=== PATIENT | female | born 1985 | race African-American/Black ===

== ENCOUNTER 2017-11-07 16:45 | Emergency (ER) | payer MEDICAID ==
[~2017-11-07] VITALS: Ht 160 cm; Wt 71.0 kg
[2017-11-07] MEDS ORDERED: DICYCLOMINE 10 MG/5 ML ORAL SYR PO STA (22:24)
[2017-11-07] MEDS ORDERED: VISCOUS LIDOCAINE 2% 15 ML UDC PO STA (22:24)
[2017-11-07] MEDS ORDERED: ONDANSETRON 4MG ODT PO STA (22:24)
[2017-11-07] MEDS ORDERED: MAGNESIUM/ALUMINUM HYDROXIDE/SIMETHICONE 30ML UDC PO STA (22:24)
[2017-11-08 00:22] LABS: CLARITY URINE CLEAR (CLEAR); COLOR URINE YELLOW (YELLOW); KETONES URINE NEGATIVE (NEGATIVE); LEUKOCYTE ESTERASE URINE NEGATIVE (NEGATIVE); NITRITE URINE NEGATIVE (NEGATIVE); OCCULT BLOOD URINE NEGATIVE (NEGATIVE); PROTEIN URINE NEGATIVE (NEGATIVE); SPECIFIC GRAVITY URINE 1.026 (1.005-1.030)
[2017-11-08] MEDS ORDERED: KETOROLAC 30MG/ML VIAL IM ONE (00:45)
[2017-11-08 00:56] LABS: BASOPHILS % 0.3 % (0.0-2.0); EOSINOPHILS % 1.2 % (0.0-5.0); HEMATOCRIT. 35.8 % (36.0-48.0); HEMOGLOBIN. 11.9 g/dL (12.0-16.0); LYMPHOCYTES % 33.5 % (20.0-50.0); MEAN CORPUSCULAR HEMOGLOBIN 28.9 pg (28.0-32.0); MEAN CORPUSCULAR VOLUME 86.5 fL (81.0-99.0); MONOCYTES % 5.4 % (2.0-8.0); NEUTROPHILS % 59.6 % (40.0-76.0); PLATELET 249 x1000/uL (130-400); RED BLOOD CELL COUNT 4.14 mill/uL (4.2-5.4)
[2017-11-08 00:58] VITALS: BP 112/64
[2017-11-08 01:03] LABS: HCG SCREEN NEGATIVE
[2017-11-08 01:06] LABS: CHLORIDE 104 mEq/L (98-107)
== END 2017-11-08 02:20 | disposition home or self-care (01) ==
LOC: ER 17:02
DX: R14.0 Abdominal distension (gaseous) (principal)
CPT/HCPCS: 36415; 71045; 80053; 81003; 83690; 84484; 84703; 85025; 93005; 96372; 99285; J1885; Q0162

== ENCOUNTER 2018-11-28 11:31 | Emergency (ER) | payer MEDICAID ==
[~2018-11-28] VITALS: Ht 160 cm; Wt 71.0 kg
[2018-11-28 11:49] VITALS: BP 122/74
[2018-11-28] MEDS ORDERED: ACETAMINOPHEN 325MG TABLET PO ONE (13:45)
== END 2018-11-28 14:57 | disposition home or self-care (01) ==
LOC: ER 13:07
DX: S80.02XA Contusion of left knee, initial encounter (principal); M54.2 Cervicalgia; M54.6 Pain in thoracic spine; Z98.890 Other specified postprocedural states; Z88.6 Allergy status to analgesic agent; V43.52XA Car driver injured in collision with other type car in traffic accident, initial encounter; Y93.89 Activity, other specified; Y92.488 Other paved roadways as the place of occurrence of the external cause
CPT/HCPCS: 99283

== ENCOUNTER 2021-11-23 10:15 | Emergency (ER) | payer MEDICAID ==
[~2021-11-23] VITALS: Ht 160 cm; Wt 70.0 kg
[2021-11-23] MEDS ORDERED: FAMOTIDINE 20MG TABLET PO ONE (11:15)
[2021-11-23] MEDS ORDERED: IBUPROFEN 600MG TABLET PO ONE (11:15)
[2021-11-23 11:45] LABS: BASOPHILS % 0.3 % (0.0-2.0); EOSINOPHILS % 1.7 % (0.0-5.0); HEMATOCRIT. 36.6 % (36.0-48.0); LYMPHOCYTES % 33.1 % (20.0-50.0); MEAN CORPUSCULAR HEMOGLOBIN 28.4 pg (28.0-32.0); MEAN CORPUSCULAR VOLUME 86.4 fL (81.0-99.0); MEAN PLATELET VOLUME 9.1 fl (7.4-10.4); NEUTROPHILS % 51.9 % (40.0-76.0); PLATELET 223 x1000/uL (130-400); RED BLOOD CELL COUNT 4.23 mill/uL (4.2-5.4); RED CELL DISTRIBUTION WIDTH 13.5 % (11.6-14.6)
[2021-11-23 11:52] LABS: CHLORIDE 106 mEq/L (98-107)
[2021-11-23] MEDS ORDERED: IBUP-2029 MT (12:24)
[2021-11-23 12:39] VITALS: BP 122/65
== END 2021-11-23 13:00 | disposition home or self-care (01) ==
LOC: ER 10:15
DX: R07.89 Other chest pain (principal); Z88.6 Allergy status to analgesic agent; Z98.890 Other specified postprocedural states
CPT/HCPCS: 36415; 71045; 80048; 81025; 84484; 85025; 85379; 93005; 99285

== ENCOUNTER 2022-07-29 05:53 | Emergency (ER) | payer MEDICAID ==
[~2022-07-29] VITALS: Ht 160 cm; Wt 69.7 kg
[~2022-07-29 05:53] MED LIST: IBUP-2029 MT
[2022-07-29] MEDS ORDERED: ACETAMINOPHEN WITH CODEINE 300/30MG TABLET PO ONE (06:30)
[2022-07-29 06:36] VITALS: BP 110/70
[2022-07-29] MEDS ORDERED: T3 PO (07:14)
[2022-07-29] MEDS ORDERED: IBUP-2028 PO (07:14)
== END 2022-07-29 08:10 | disposition home or self-care (01) ==
LOC: ER 05:53
DX: S52.592A Other fractures of lower end of left radius, initial encounter for closed fracture (principal); S52.692A Other fracture of lower end of left ulna, initial encounter for closed fracture; Z98.890 Other specified postprocedural states; W01.0XXA Fall on same level from slipping, tripping and stumbling without subsequent striking against object, initial encounter; Y93.51 Activity, roller skating (inline) and skateboarding; Y92.89 Other specified places as the place of occurrence of the external cause; Y99.8 Other external cause status
CPT/HCPCS: 29105; 73110; 99283

== ENCOUNTER 2023-10-27 22:56 | Emergency (ER) | payer MEDICAID ==
[~2023-10-27] VITALS: Ht 160 cm; Wt 71.0 kg
[~2023-10-27 22:56] MED LIST changes: +IBUP-2028 PO; +T3 PO
[2023-10-27 23:37] VITALS: BP 122/80; PULSE 82; RESP 18; TEMP 98.5; O2SAT 100
[2023-10-28 00:12] LABS: BASOPHILS % 0.3 % (0.0-2.0); EOSINOPHILS % 1.5 % (0.0-5.0); HEMATOCRIT. 30.4 % (36.0-48.0); HEMOGLOBIN. 10.1 g/dL (12.0-16.0); LYMPHOCYTES % 29.1 % (20.0-50.0); MEAN CORPUSCULAR HEMOGLOBIN 29.7 pg (28.0-32.0); MEAN CORPUSCULAR HGB CONC 33.1 g/dL (31.0-37.0); MEAN CORPUSCULAR VOLUME 89.9 fL (81.0-99.0); MEAN PLATELET VOLUME 8.5 fl (7.4-10.4); MONOCYTES % 7.2 % (2.0-8.0); NEUTROPHILS % 61.9 % (40.0-76.0); PLATELET 324 x1000/uL (130-400); RED BLOOD CELL COUNT 3.39 mill/uL (4.2-5.4); RED CELL DISTRIBUTION WIDTH 13.7 % (11.6-14.6); WHITE BLOOD COUNT 9.5 x1000/uL (4.5-11.0)
[2023-10-28 00:17] LABS: CHLORIDE 104 mEq/L (98-107); POTASSIUM 3.2 mEq/L (3.5-5.1); SODIUM 135 mEq/L (136-145)
[2023-10-28 00:18] LABS: CARBON DIOXIDE 24 mEq/L (21-32)
[2023-10-28 00:19] LABS: CALCIUM 9.4 mg/dL (8.7-10.4)
[2023-10-28 00:23] LABS: CREATININE 0.9 mg/dL (0.6-1.0); GLUCOSE 90 mg/dL (70-105); UREA NITROGEN BLOOD 15 mg/dL (9-23)
[2023-10-28 00:24] LABS: B-HCG QUANTITATIVE 153 mIU/mL (<3)
[2023-10-28] MEDS: POTASSIUM CHLORIDE 20MEQ/PACKET PO ONE (01:30)
[2023-10-28 02:07] LABS: CLARITY URINE CLEAR (CLEAR); COLOR URINE YELLOW (YELLOW); GLUCOSE URINE NEGATIVE (NEGATIVE); KETONES URINE TRACE (NEGATIVE); LEUKOCYTE ESTERASE URINE TRACE (NEGATIVE); NITRITE URINE NEGATIVE (NEGATIVE); OCCULT BLOOD URINE 3+ (NEGATIVE); PROTEIN URINE 1+ (NEGATIVE); SPECIFIC GRAVITY URINE 1.021 (1.005-1.030); UROBILINOGEN URINE 0.2 E.U./dL (0.2-1.0)
[2023-10-28 08:39] LABS: RBC URINE 0-2 /hpf (0-2); SQUAMOUS EPITHELIAL CELL URINE 1+ /lpf (RARE/1+)
[2023-10-28 08:42] LABS: BACTERIA URINE TRACE
== END 2023-10-28 02:35 | disposition home or self-care (01) ==
LOC: ER 22:56
DX: O20.0 Threatened abortion (principal); E87.6 Hypokalemia; D64.9 Anemia, unspecified; Z3A.01 Less than 8 weeks gestation of pregnancy; Z98.890 Other specified postprocedural states; Z98.51 Tubal ligation status
CPT/HCPCS: 36415; 80048; 81003; 81025; 84702; 85025; 86850; 86900; 99283

== ENCOUNTER 2024-12-15 20:09 | Emergency (ER) | payer MEDICAID ==
[~2024-12-15] VITALS: Ht 160 cm; Wt 73.0 kg
[2024-12-15 20:20] VITALS: TEMP 37; O2SAT 100
[2024-12-15 20:59] LABS: BASOPHILS % 0.4 % (0.0-2.0); EOSINOPHILS % 1.4 % (0.0-5.0); HEMATOCRIT. 34.2 % (36.0-48.0); HEMOGLOBIN. 11.2 g/dL (12.0-16.0); LYMPHOCYTES % 35.2 % (20.0-50.0); MEAN PLATELET VOLUME 9.0 fl (7.4-10.4); MONOCYTES % 9.1 % (2.0-8.0); NEUTROPHILS % 53.9 % (40.0-76.0); PLATELET 277 x1000/uL (130-400); RED BLOOD CELL COUNT 3.85 mill/uL (4.2-5.4); RED CELL DISTRIBUTION WIDTH 12.8 % (11.6-14.6)
[2024-12-15 21:08] LABS: CREATININE 1.0 mg/dL (0.6-1.0)
[2024-12-15 21:09] LABS: B-HCG QUANTITATIVE 44 mIU/mL (<6); UREA NITROGEN BLOOD 13 mg/dL (9-23)
[2024-12-15 22:03] LABS: CLARITY URINE CLEAR (CLEAR); COLOR URINE YELLOW (YELLOW); GLUCOSE URINE NEGATIVE (NEGATIVE); KETONES URINE TRACE (NEGATIVE); LEUKOCYTE ESTERASE URINE NEGATIVE (NEGATIVE); NITRITE URINE NEGATIVE (NEGATIVE); OCCULT BLOOD URINE 1+ (NEGATIVE); PH URINE 7.0 (4.5-8.0); PROTEIN URINE NEGATIVE (NEGATIVE); SPECIFIC GRAVITY URINE 1.023 (1.005-1.030); UROBILINOGEN URINE 1.0 E.U./dL (0.2-1.0)
[2024-12-15 22:20] LABS: BACTERIA URINE 1+; SQUAMOUS EPITHELIAL CELL URINE 2+ /lpf (RARE/1+); WBC URINE 0-2 /hpf (0-2)
[2024-12-15 22:59] VITALS: BP 119/75; PULSE 76; RESP 11; O2SAT 100
== END 2024-12-15 23:04 | disposition home or self-care (01) ==
LOC: ER 20:09 → EDBEDREQTM 22:29 → EDBEDREQ 22:29 → EDBEDREQSVC 22:29 → ER 23:04 → CMPBEDREQ 12-16 08:19
DX: O46.91 Antepartum hemorrhage, unspecified, first trimester (principal); O26.891 Other specified pregnancy related conditions, first trimester; R10.2 Pelvic and perineal pain; Z88.5 Allergy status to narcotic agent; Z3A.01 Less than 8 weeks gestation of pregnancy
CPT/HCPCS: 36415; 76801; 80048; 81003; 81025; 84702; 85025; 86850; 86900; 99284